=== PATIENT | male | born 1965 | race African-American/Black ===

== ENCOUNTER 2018-02-04 19:22 | Emergency (ER) | payer OTHER ==
[~2018-02-04] VITALS: Ht 172.7 cm; Wt 97.5 kg
--- OUTSIDE RECORDS SUMMARY | 2018-02-04 19:27 | XMS REPORT | Referral Summary ---
Author Author [facility] Organization [facility] Address Unknown Phone Unavailable Care Team Providers Care Medical Diagnostic Radiographer Name Role Phone [facility] PCP Unavailable Encounter [facility] [id number] Date(s): 02/22/15 - 02/23/15 [facility] [address] [place] [address] [phone] Discharge Diagnosis: Head injury Discharge Diagnosis: Sinusitis Discharge Diagnosis: Multiple abrasions Discharge Disposition: 01-Home or Self Care Attending Physician: Na Henderson MD Admitting Physician: Na Henderson MD Vital Signs Most recent to 1 oldest [Reference Range]: Temperature Oral 36.4 degC [35.8-37.3 degC] (02/22/15 11:08 PM) Peripheral Pulse 120 bpm Rate [60-100 bpm] *HI* (02/22/15 11:08 PM) Respiratory Rate 15 br/min [14-20 br/min] (02/22/15 11:08 PM) Blood Pressure 107/98 mmHg [90-140/60-90 mmHg] (02/22/15 11:08 PM) SpO2 94 % (02/22/15 11:08 PM) Problem List Condition Effective Dates Status Health Status Informant No Chronic Problems Active Tobacco Active patient user(Confirmed) Allergies, Adverse Reactions, Alerts No Known Allergies Medications amoxicillin 500 mg oral tablet 500 mg 1 tabs, Oral, TID, for infection, X 7 days, # 21 tabs, 0 Refill(s) Start Date: 02/23/15 Stop Date: 03/02/15 Status: Ordered ibuprofen 800 mg oral tablet 1 tabs, Oral, TID, Pain, # 15 tabs, 0 Refill(s) Start Date: 06/03/14 Status: Ordered [place] 5 mg-325 mg oral tablet 2 tabs, Oral, q6hr, as needed for pain, # 12 tabs, 0 Refill(s) Start Date: 09/30/13 Status: Ordered Results No data available for this section Immunizations Vaccine Date Refusal Reason tetanus/diphth/pertuss (Tdap) adult/adol 02/23/15 Procedures Procedure Date Related Diagnosis Body Site Cataract surgery1 1bilat Social History Social History Type Response Smoking Status Current every day smoker; Type: Cigarettes; Tobacco use per day: Pack Assessment and Plan No data available for this section
--- OUTSIDE RECORDS SUMMARY | 2018-02-04 19:27 | XMS REPORT | Referral Summary ---
Author Author [facility] Organization [facility] Address Unknown Phone Unavailable Care Team Providers Care Record Center Coordinator Name Role Phone [facility] PCP Unavailable Encounter [facility] Date(s): 09/12/14 - 09/13/[address] [facility] [address] [place] [address] Final: VIRAL WARTS, UNSPECIFIED Final: TOBACCO USE DISORDER Discharge Diagnosis: Wart Discharge Disposition: 01-Home or Self Care Attending Physician: Cristian Markham MD Admitting Physician: Cristian Markham MD Vital Signs Most recent to 1 oldest [Reference Range]: Temperature Oral 36.9 degC [35.8-37.3 degC] (09/12/14 11:26 PM) Peripheral Pulse 81 bpm Rate [60-100 bpm] (09/13/14 12:12 AM) Respiratory Rate 18 br/min [14-20 br/min] (09/13/14 12:12 AM) Blood Pressure 119/78 mmHg [90-140/60-90 mmHg] (09/13/14 12:12 AM) SpO2 95 % (09/13/14 12:12 AM) Problem List Condition Effective Dates Status Health Status Informant No Chronic Problems Active Tobacco Active patient user(Confirmed) Allergies, Adverse Reactions, Alerts No Known Allergies Medications ibuprofen 800 mg oral tablet 1 tabs, Oral, TID, Pain, # 15 tabs, 0 Refill(s) Start Date: 06/03/14 Status: Ordered [place] 5 mg-325 mg oral tablet 2 tabs, [...]
--- OUTSIDE RECORDS SUMMARY | 2018-02-04 19:27 | XMS REPORT | Referral Summary ---
Author Author [facility] Organization [facility] Address Unknown Phone Unavailable Care Team Providers Care Home Administrator Name Role Phone [facility] PCP Unavailable No PCP, Pt States PCP Encounter [facility] Date(s): 05/20/17 - 05/20/17 [facility] [address] [place] [address] [place] [phone] Encounter Diagnosis Chronic low back pain (Discharge Diagnosis) - 05/20/17 Discharge Disposition: 01-Home or Self Care Attending Physician: Cristian Markham MD Admitting Physician: Yared Durbin DO Referring Physician: Self Referred, X Vital Signs Most recent to 1 oldest [Reference Range]: Temperature Oral 36.4 degC [35.8-37.3 degC] (05/20/17 12:47 PM) Peripheral Pulse 97 bpm Rate [60-100 bpm] (05/20/17 1:27 PM) Respiratory Rate 20 br/min [14-20 br/min] (05/20/17 1:27 PM) Blood Pressure 123/90 mmHg [90-140/60-90 mmHg] (05/20/17 1:27 PM) SpO2 99 % (05/20/17 1:27 PM) Problem List Condition Effective Dates Status Health Status Informant No Chronic Problems Active Tobacco Active patient user(Confirmed) Allergies, Adverse Reactions, Alerts No Known Allergies Medications ibuprofen 800 mg oral tablet 1 tabs, Oral, TID, Pain, # 15 tabs, 0 Refill(s) Start Date: 06/03/14 Status: Ordered [place] 5 mg-325 mg oral tablet 2 tabs, Oral, q6hr, as needed for pain, # 12 tabs, 0 Refill(s) Start Date: 09/30/13 Status: Ordered Results No data available for this section Immunizations Given and Recorded Vaccine Date Status Refusal Reason tetanus/diphth/pertuss (Tdap) adult/adol 02/23/15 Given Procedures Procedure Date Related Diagnosis Body Site Status Cataract surgery1 Completed 1bilat Social History Social History Type Response Smoking Status 4 or less cigarettes(less than 1/4 pack)/day in last 30 days entered on: 05/20/17 Assessment and Plan No data available for this section
--- OUTSIDE RECORDS SUMMARY | 2018-02-04 19:27 | XMS REPORT | Referral Summary ---
Author Author [facility] Organization [facility] Address Unknown Phone Unavailable Care Team Providers Care Food Beverage Attendant Name Role Phone [facility] PCP Unavailable Encounter [facility] [id number] Date(s): 02/23/15 - 02/23/15 [facility] [address] [place] [address] [facility] Discharge Diagnosis: Hand contusion Discharge Diagnosis: Closed head injury Discharge Disposition: 01-Home or Self Care Attending Physician: Omar Molina PA-C Attending Physician: Provider, Immediate Care Admitting Physician: Provider, Immediate Care Vital Signs Most recent to 1 oldest [Reference Range]: Temperature Oral 36.8 degC [35.8-37.3 degC] (02/23/15 12:41 PM) Peripheral Pulse 99 bpm Rate [60-100 bpm] (02/23/15 12:41 PM) Blood Pressure 120/75 mmHg [90-140/60-90 mmHg] (02/23/15 12:41 PM) SpO2 97 % (02/23/15 12:41 PM) Problem List Condition Effective Dates Status [...] 0 Refill(s) Start Date: 06/03/14 Status: Ordered [place] 5 mg-325 mg oral tablet 2 tabs, [...] use per day: Pack Assessment and Plan Extracted from: Title: Office Visit Note Author: Omar Molina PA-C Date: 02/23/15 Assessment/Plan 1.Hand contusion X-ray negative. Pt will RICE injury and take ibuprofen as directed. Ordered: Office Visit Level 3 Est 99450 2.Closed head injury No neurological deficits noted on exam. No evidence of TBI. Diagnosis and treatment discussed. Patient advised to follow up with PCP in 1-2 days. If symptoms worsen at any time, patient will go to the nearest ER for further evaluation. Patient stable upon discharge, alert and orientated with no apparent distress, and indicated understanding of discharge instructions. Ordered: Office Visit Level 3 Est 94913
--- OUTSIDE RECORDS SUMMARY | 2018-02-04 19:27 | XMS REPORT | Referral Summary ---
Author Organization Unknown Address Unknown Phone Unavailable Care Team Providers Care Lens Polisher Name Role Phone No PCP, Pt States PCP Encounter [facility] Date(s): 06/03/14 - 06/03/14 [facility] [address] [place] [address] [place] Discharge Diagnosis: Rhomboid muscle strain Discharge Disposition: Home or Self Care Attending Physician: Josh Beasley MD Admitting Physician: Josh Beasley MD Vital Signs Most recent to 1 oldest [Reference Range]: Temperature Oral 36.6 degC [35.8-37.3 degC] (06/03/14 2:15 PM) Peripheral Pulse 88 bpm Rate [60-100 bpm] (06/03/14 2:15 PM) Heart Rate Monitored 76 bpm [60-100 bpm] (06/03/14 5:35 PM) Respiratory Rate 18 br/min [14-20 br/min] (06/03/14 5:35 PM) Blood Pressure 126/54 mmHg [90-140/60-90 mmHg] (06/03/14 5:35 PM) Most recent to 1 oldest [Reference Range]: SpO2 99 % (06/03/14 5:35 PM) Problem List No Known Problems Allergies, Adverse Reactions, Alerts No Known Allergies Medications cyclobenzaprine 10 mg oral tablet 1 tabs, Oral, TID, as needed for spasm, X 3 days, # 9 tabs, 0 Refill(s) Start Date: 06/03/14 Stop Date: 06/06/14 Status: Ordered ibuprofen 800 mg oral tablet 1 tabs, Oral, TID, Pain, # 15 tabs, 0 Refill(s) Start Date: 06/03/14 Status: Ordered [place] 5 mg-325 mg oral tablet 2 tabs, Oral, q6hr, as needed for pain, # 12 tabs, 0 Refill(s) Start Date: 09/30/13 Status: Ordered oxyCODONE-acetaminophen 5 mg-325 mg oral tablet 1 tabs, Oral, q6hr, Pain, X 3 days, # 12 tabs, 0 Refill(s) Start Date: 06/03/14 Stop Date: 06/06/14 Status: Ordered Results No data available for this section Immunizations No data available for this section Procedures Procedure Date Related Diagnosis Body Site Cataract surgery1 1bilat Social History Social History Type Response Smoking Status Current every day smoker; Type: Cigarettes; Tobacco use per day: Pack Assessment and Plan No data available for this section
--- OUTSIDE RECORDS SUMMARY | 2018-02-04 19:27 | XMS REPORT | Referral Summary ---
Author Author [facility] Organization [facility] Address Unknown Phone Unavailable Care Team Providers Care Iron Setter Name Role Phone [facility] PCP Unavailable Encounter [facility] [id number] Date(s): 04/09/17 - 04/09/17 [facility] [address] [place] [address] [phone] Discharge Diagnosis: Chronic back pain Discharge Disposition: 01-Home or Self Care Attending Physician: Cristian Kinsey MD Admitting Physician: Cristian Kinsey MD Vital Signs Most recent to 1 oldest [Reference Range]: Temperature Oral 36.0 degC [35.8-37.3 degC] (04/09/17 12:51 AM) Peripheral Pulse 91 bpm Rate [60-100 bpm] (04/09/17 3:20 AM) Respiratory Rate 16 br/min [14-20 br/min] (04/09/17 3:20 AM) Blood Pressure 117/78 mmHg [90-140/60-90 mmHg] (04/09/17 3:20 AM) SpO2 98 % (04/09/17 3:20 AM) Problem List Condition Effective Dates Status Health Status Informant No Chronic Problems Active Tobacco Active patient user(Confirmed) Allergies, Adverse Reactions, Alerts No Known Allergies Medications ibuprofen 800 mg oral tablet 1 tabs, Oral, TID, Pain, # 15 tabs, 0 Refill(s) Start Date: 06/03/14 Status: Ordered [place] 5 mg-325 mg oral tablet 2 tabs, Oral, q6hr, as needed for pain, # 12 tabs, 0 Refill(s) Start Date: 09/30/13 Status: Ordered Percocet 5/325 oral tablet 1 tabs, Oral, q6hr, as needed for pain, dr. kinsey supervising physician, # 4 tabs, 0 Refill(s) Start Date: 04/09/17 Stop Date: 04/11/17 Status: Ordered Results No data available for this section Immunizations Given and Recorded Vaccine Date Status Refusal Reason tetanus/diphth/pertuss (Tdap) adult/adol 02/23/15 Given Procedures Procedure Date Related Diagnosis Body Site Cataract surgery1 1bilat Social History Social History Type Response Smoking Status Current every day smoker; Type: Cigarettes; Tobacco use per day: Pack entered on: 09/13/14 Assessment and Plan No data available for this section
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
--- NOTE | 2018-02-04 20:12 | ED EENT ---
History of Present Illness General Chief Complaint: Eye Problems Stated Complaint: EYE ISSUES Source: patient, police History of Present Illness Date Seen by Provider: Feb 04, 2018 Time Seen by Provider: 20:01 Initial Comments Patient presents to ER by police where he is incarcerated with chief complaint that he had some vision loss of the last day. He says his left eye is historically been very poor vision secondary to glaucoma and he has had the ability to see shapes and colors but yesterday noticed he was not able to see very well with that. His right eye has been having some burning and stinging. He says usually she pretty well with that however now it's gotten worse and he sees some spots floaters in movement but he can no longer see very well with that. He takes a couple eyedrops for his glaucoma and he says usually they make it feel better but last few days it feel worse but he has continued to use them. He was seen by the nurse practitioner at the [facility] but they sent him on to [place] [facility] because they did not have an ophthalmoscope. The [place] practitioner said she could not see very well using ophthalmoscope and so she transferred him here. Allergies and Home Medications Allergies Coded Allergies: No Known Drug Allergies (Unverified , 02/04/18) Patient Home Medication List Home Medication List Reviewed: Yes Review of Systems Review of Systems Constitutional: No chills, No diaphoresis, No fever, No malaise Eyes: Blindness, Blurred Vision, Inflammation, Pain (mild right eye) Ears: Denies Dizziness, Denies Pain Nose: denies clots, denies congestion Mouth: no symptoms reported Throat: denies pain, denies swelling Respiratory: No cough, No phlegm Past [id number] Hx Patient Social History Alcohol Use: Denies Use Recreational Drug Use: Yes Recent Foreign Travel: No Contact w/Someone Who Travel: No Physical Exam Vital Signs Vital Signs - First Documented 02/04/18 19:43 Temp 97.5 Pulse 74 Resp 17 B/P (MAP) 116/82 (93) Pulse Ox 100 O2 Delivery Room Air Height, Weight, BMI Height: '" Weight: lbs. oz. kg; BMI Method: General Appearance: WD/WN, no apparent distress Eyes: bilateral eye normal inspection, bilateral eye PERRL, bilateral eye EOMI Ears: bilateral ear auricle normal, bilateral ear canal normal, bilateral ear TM normal Nose: normal inspection; No active bleeding Mouth/Throat: normal mouth inspection, pharynx normal Neck: full range of motion, normal inspection Cardiovascular: normal peripheral pulses, regular rate, rhythm Respiratory: chest non-tender, lungs clear, normal breath sounds, no respiratory distress, no accessory muscle use Neurologic/Psychiatric: alert, normal mood/affect, oriented x 3, other (Left eye 20/200 right eye as little better. Ophthalmic funduscopic exam demonstrates darkening tissue and unable to see the retina. Fluorescein staining is unremarkable. Tonometry was 20, 21, 21.) Progress/Results/Core Measures Results/Orders Lab Results Laboratory Tests Test 02/04/18 21:50 Range/Units White Blood Count 5.0 4.3-11.0 10^3/uL Red Blood Count 4.23 L 4.35-5.85 10^6/uL Hemoglobin 13.0 L 13.3-17.7 G/DL Hematocrit 39 L 40-54 % Mean Corpuscular Volume 93 80-99 FL Mean Corpuscular Hemoglobin 31 25-34 PG Mean Corpuscular Hemoglobin Concent 33 32-36 G/DL Red Cell Distribution Width 13.4 10.0-14.5 % Platelet Count 264 130-400 10^3/uL Mean Platelet Volume 10.3 7.4-10.4 FL Neutrophils (%) (Auto) 51 42-75 % Lymphocytes (%) (Auto) 35 12-44 % Monocytes (%) (Auto) 8 0-12 % Eosinophils (%) (Auto) 5 0-10 % Basophils (%) (Auto) 1 0-10 % Neutrophils # (Auto) 2.5 1.8-7.8 X 10^3 Lymphocytes # (Auto) 1.7 1.0-4.0 X 10^3 Monocytes # (Auto) 0.4 0.0-1.0 X 10^3 Eosinophils # (Auto) 0.2 0.0-0.3 10^3/uL Basophils # (Auto) 0.1 0.0-0.1 10^3/uL Erythrocyte Sedimentation Rate 31 H 0-30 MM/HR Sodium Level 139 135-145 MMOL/L Potassium Level 4.1 3.6-5.0 MMOL/L Chloride Level 105 98-107 MMOL/L Carbon Dioxide Level 26 21-32 MMOL/L Anion Gap 8 5-14 MMOL/L Blood Urea Nitrogen 8 7-18 MG/DL Creatinine 0.99 0.60-1.30 MG/DL Estimat Glomerular Filtration Rate > 60 BUN/Creatinine Ratio 8 Glucose Level 111 H 70-105 MG/DL Calcium Level 9.3 8.5-10.1 MG/DL Corrected Calcium 9.3 8.5-10.1 MG/DL Total Bilirubin 0.3 0.1-1.0 MG/DL Aspartate Amino Transf (AST/SGOT) 12 5-34 U/L Alanine Aminotransferase (ALT/SGPT) 9 0-55 U/L Alkaline Phosphatase 88 40-136 U/L C-Reactive Protein High Sensitivity 1.98 H 0.00-0.50 MG/DL Total Protein 7.6 6.4-8.2 GM/DL Albumin 4.0 3.2-4.5 GM/DL My Orders Orders - JORGE BELLAMY Tetracaine 0.5% Ophth Kaitlynn Sdv (Tetracai (02/04/18 20:15) Fluorescein Strips ([id number]) (02/04/18 20:15) Tropicamide 1% Ophthalmic Soln (Mydriacy (02/04/18 21:15) Tropicamide 1% Ophth Soln (Mydriacyl 1% (02/04/18 21:09) Cbc With Automated Diff (02/04/18 21:32) Comprehensive Metabolic Panel (02/04/18 21:32) Hs C Reactive Protein (02/04/18 21:32) Erythrocyte Sedimentation Rate (02/04/18 21:32) Prednisolone 1% Ophthalmic Cindi (Pred For (02/04/18 22:15) Prednisolone 1% Ophthalmic Cindi (Pred For (02/04/18 22:13) Medications Given in ED Current Medications Medications Dose Ordered Sig/Justin Route Start Time Stop Time Status Last Admin Dose Admin Fluorescein Sodium 1 mg ONCE ONCE OU 02/04/18 20:15 02/04/18 20:16 DC 02/04/18 20:40 1 MG Tetracaine HCl 4 ml ONCE ONCE OU 02/04/18 20:15 02/04/18 20:16 DC 02/04/18 20:40 4 ML Tropicamide 15 ml STK-MED ONCE .ROUTE 02/04/18 21:09 02/04/18 21:11 DC 11/20/18 21:20 15 ML Vital Signs/I&O 02/04/18 19:43 Temp 97.5 Pulse 74 Resp 17 B/P (MAP) 116/82 (93) Pulse Ox 100 O2 Delivery Room Air Progress Progress Note : Time: 21:24 Progress Note Highly suspect based on his history of being told by over a year ago he needed the surgery that he might have a retinal detachment or some other intraocular pathology. We'll talk to ophthalmology come by and do a examination. Consults : Consulting Physician: JULIANNA EISENBERG OD Consults Notes Discussed the case with him and he says closed angle glaucoma, ischemic neuropathy or detachment retina are possibilities. We will put in some tropicamide now and in 10 minutes both eyes he will come out and examine the patient in about half hour. After extensively examining the patient he feels a acute angular posterior glaucoma and is extremely unlikely given his surgeries in the past. 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 He was started on steroids but he would like to see the patient again in 1 day to do some further imaging studies try and rule out an infectious process. We' ve communicated this and her discharge instructions and orders as well as with the guard who accompanies him who is contacting his captain. We have also spoke over the phone with care of the nurse practitioner at the retirement and indicated our desire to have the patient followed up. Departure Impression Primary Impression: Uveitis Additional Impression: Glaucoma Qualified Codes: H40.9 - Unspecified glaucoma Disposition: 01 HOME, SELF-CARE Condition: Stable Departure-Patient Inst. Decision time for Depature: 22:29 Referrals: JULIANNA EISENBERG OD NO,LOCAL PHYSICIAN (PCP) Primary Care Physician Patient Instructions: Uveitis Add. Discharge Instructions: Start the steroid drops 2 drops every 2 hours to your right eye. Follow-up with Dr. Eisenberg, screw machine set up operator in the clinic tomorrow. Call for an appointment. If your Vision worsens then you can call the after hours number. All discharge instructions reviewed with patient and/or family. Voiced understanding. Scripts Prednisolone Acetate/Pf (Prednisolone Acet 1% Eye Drop) 5 Ml Drops.susp 2 DROPS OP Q2H for 10 Days, #5 ML 0 Refills Prov: JORGE BELLAMY 02/04/18 JORGE BELLAMY Feb 04, 2018 20:12
[2018-02-04] MEDS: TETRACAINE 0.5% OPHTH SOLN 4 ML BTL (SINGLE DOSE ONLY) OU ONE (20:40)
[2018-02-04] MEDS: FLUORESCEIN (FLUOR-I-STRIPS) 1 MG STRP OU ONE (20:40)
[2018-02-04] MEDS: TROPICAMIDE 1% OPH SOLN (MYDRIACYL) 15 ML BTL ONE (21:20)
[2018-02-04] MEDS: TROPICAMIDE 1% OPH SOLN (MYDRIACYL) 3 ML BTL OU ONE (21:20)
[2018-02-04 22:01] LABS: BASOPHILS # (AUTO) 0.1 10^3/uL (0.0-0.1); BASOPHILS % (AUTO) 1 % (0-10); EOSINOPHILS # (AUTO) 0.2 10^3/uL (0.0-0.3); EOSINOPHILS % (AUTO) 5 % (0-10); HEMATOCRIT 39 % (40-54); LYMPHOCYTES # (AUTO) 1.7 X 10^3 (1.0-4.0); LYMPHOCYTES % (AUTO) 35 % (12-44); MEAN CORPUSCULAR HEMOGLOBIN 31 PG (25-34); MEAN CORPUSCULAR HGB CONC 33 G/DL (32-36); MEAN CORPUSCULAR VOLUME 93 FL (80-99); MEAN PLATELET VOLUME 10.3 FL (7.4-10.4); MONOCYTES # (AUTO) 0.4 X 10^3 (0.0-1.0); MONOCYTES % (AUTO) 8 % (0-12); NEUTROPHILS # (AUTO) 2.5 X 10^3 (1.8-7.8); NEUTROPHILS % (AUTO) 51 % (42-75); PLATELET COUNT 264 10^3/uL (130-400); RED BLOOD COUNT 4.23 10^6/uL (4.35-5.85); RED CELL DISTRIBUTION WIDTH 13.4 % (10.0-14.5)
[2018-02-04] MEDS ORDERED: prednisoLONE 1% OPTH (PRED FORTE) 5 ML BTL OU SCH (22:15)
[2018-02-04 22:19] LABS: ALANINE AMINOTRANSFERASE 9 U/L (0-55); ALKALINE PHOSPHATASE 88 U/L (40-136); BILIRUBIN,TOTAL 0.3 MG/DL (0.1-1.0); BUN/CREATININE RATIO 8; CALCIUM 9.3 MG/DL (8.5-10.1); CARBON DIOXIDE 26 MMOL/L (21-32); CHLORIDE 105 MMOL/L (98-107); CREATININE SERUM 0.99 MG/DL (0.60-1.30); GFR ESTIMATED > 60; GLUCOSE 111 MG/DL (70-105); POTASSIUM 4.1 MMOL/L (3.6-5.0); SODIUM 139 MMOL/L (135-145); TOTAL PROTEIN 7.6 GM/DL (6.4-8.2)
[2018-02-04 22:20] LABS: ERYTHROCYTE SEDIMENTATION RATE 31 MM/HR (0-30)
[2018-02-04] MEDS ORDERED: PRED5DRO24 OP (22:32)
[2018-02-04] MEDS: prednisoLONE 1% OPTH (PRED FORTE) 5 ML BTL ONE (22:45)
[2018-02-04 22:46] VITALS: BP 116/77
== END 2018-02-04 22:46 | disposition home or self-care (01) ==
LOC: ER 19:24
DX: H20.9 Unspecified iridocyclitis (principal); H40.9 Unspecified glaucoma
CPT/HCPCS: 36415; 80053; 85025; 85652; 86141; 99283